=== PATIENT | female | born 1950 | race Caucasian/White ===

== ENCOUNTER 2019-08-15 09:06 | Day surgery (SDC) | payer MEDICARE, OTHER ==
[2019-08-15] VITALS (7 sets, daily range): BP systolic 124–136; BP diastolic 58–104; PULSE 63–74; TEMP 97–97.1
[~2019-08-15] VITALS: Ht 167.6 cm; Wt 85.5 kg
[2019-08-15] MEDS ORDERED: SYNTHROID0.1 MG/TAB PO (09:18)
[2019-08-15] MEDS ORDERED: PHARMASSURE ZIN50 MG PO (09:19)
[2019-08-15] MEDS ORDERED: ECHINACEA 5001 EACH PO (09:19)
[2019-08-15] MEDS ORDERED: VITAMIN D31000 I1 PO (09:20)
[2019-08-15] MEDS ORDERED: NIACINAMIDE500 MG PO (09:20)
[2019-08-15] MEDS ORDERED: MAGNEBIND 300 21 TAB PO (09:22)
--- NOTE | 2019-08-15 10:50 | NUR ---
PT TO BAY 3 FROM PROCEDURE ROOM ON CART. PT WALKS WITH ASSISTANCE TO CHAIR IN BAY 3. VITAL SIGNS STABLE. CALL LIGHT NEXT TO PT.
--- NOTE | 2019-08-15 11:05 | NUR ---
PT CONTINUES TO DENY C/O. VITAL SIGNS STABLE. PT EATING PUDDING AND MUFFIN. DRINKING WATER. CALL LIGHT NEXT TO PT.
--- NOTE | 2019-08-15 11:20 | NUR ---
PT CONTINUES TO DENY C/O. IV DISCONTINUED. CATHETER INTACT. CALL LIGHT NEXT TO PT.
--- NOTE | 2019-08-15 12:20 | NUR ---
Discharge instructions given to patient. Handed to her are a thank you card, discharge instructions, diagnosis information, and procedural photos. All questions answered to her satisfaction. Pt asked many questions regarding procedure, results, treatment, and options. Pt given the option of visiting again with Dr. Rizzo. Pt declined.
--- NOTE | 2019-08-15 12:50 | NUR ---
Pt transferred out of hospital via wheelchair and this RN to private vehicle driven by .
== END 2019-08-15 12:50 | disposition home or self-care (01) ==
LOC: SDCO 09:06 → EDSEX 09:06 → SDCO 12:50
DX: K21.0 Gastro-esophageal reflux disease with esophagitis (principal); K25.7 Chronic gastric ulcer without hemorrhage or perforation; K29.80 Duodenitis without bleeding; E78.00 Pure hypercholesterolemia, unspecified; Z88.1 Allergy status to other antibiotic agents; Z88.8 Allergy status to other drugs, medicaments and biological substances; Z87.11 Personal history of peptic ulcer disease; E03.9 Hypothyroidism, unspecified; Z90.710 Acquired absence of both cervix and uterus; Z90.49 Acquired absence of other specified parts of digestive tract
CPT/HCPCS: J2250; J3010